=== PATIENT | male | born 1990 | race Caucasian/White ===

== ENCOUNTER 2018-04-28 17:59 | Inpatient (IN) | payer OTHER ==
[2018-04-28 18:24] LABS: Bilirubin Negative (Negative); Blood, Urine Negative (Negative); Clarity Clear (Clear); Glucose, Urine (Dipstick) Negative (Negative); Leukocyte Negative (Negative); Nitrite Negative (Negative); Protein, Urine (Dipstick) 30 mg/dL (Neg-Trace); Specific Gravity, Urine 1.015 (1.005-1.030); pH, Urine 8.5 (5.0-9.0)
[2018-04-28 18:26] LABS: RBC/HPF None Seen HPF (0-3); Squamous Epithelial None Seen HPF (0-3); WBC/HPF None Seen HPF (0-3)
[2018-04-28 18:27] LABS: Bacteria/HPF 1+ HPF (None Seen)
[2018-04-28] MEDS ORDERED: Famotidine/PF 20 mg/2ml Vial ONE (18:30)
[2018-04-28] MEDS ORDERED: Ondansetron HCl/PF 4 MG/2 ML Vial ONE (18:30)
[2018-04-28 18:57] LABS: #Lymphocytes 0.5 thou/uL (1.20-3.40); #Monocytes 0.6 thou/uL (0.11-0.59); #Neutrophils 10.5 thou/uL (1.40-6.50); %Basophils 0.2 % (0.0-1.0); %Eosinophils 0.2 % (0.0-10.0); %Monocytes 5.5 % (0.0-10.0); %Neutrophils 90.1 % (42.0-75.0); Hemoglobin 15.6 g/dL (14.0-18.0); Mean Corpuscular HGB CONC 36.9 g/dL (32.0-36.0); Mean Corpuscular Hemoglobin 31.8 pg (27.0-31.0); Mean Corpuscular Volume 86.3 fL (78.0-98.0); Mean Platelet Volume 11.4 fL (7.4-10.4); Platelet Count 130 thou/uL (130-400); RBC Distribution Width 10.1 % (11.5-14.5); Red Blood Cell (RBC) Count 4.89 mill/uL (4.70-6.10); White Blood Cell (WBC) Count 11.7 thou/uL (4.8-10.8)
[2018-04-28 19:04] LABS: ALT (SGPT) 19 U/L (8-55); AST (SGOT) 27 U/L (5-34); Albumin 4.7 g/dL (3.5-5.0); Alkaline Phosphatase 106 U/L (40-150); Anion Gap 14 mmol/L (10-20); BUN (Urea Nitrogen) 20 mg/dL (8.9-20.6); Bilirubin, Total 1.2 mg/dL (0.2-1.2); Calc. Creatinine Clearance 0 mL/min (70-130); Calcium 9.2 mg/dL (7.8-10.44); Carbon Dioxide 25 mmol/L (22-29); Chloride 106 mmol/L (98-107); Estimated GFR-MDRD Greater than 90; Glucose 104 mg/dL (70-105); Lipase 665 U/L (8-78); Potassium 3.7 mmol/L (3.5-5.1); Protein, Total 6.7 g/dL (6.0-8.3); Sodium 141 mmol/L (136-145)
[2018-04-28 20:34] VITALS: BMI 23.4
[2018-04-28] MEDS ORDERED: Ondansetron HCl/PF 4 MG/2 ML Vial IVP PRN (21:26)
[2018-04-28] MEDS ORDERED: Ondansetron ODT 4 MG TAB PO PRN (21:26)
[2018-04-28] MEDS ORDERED: Acetaminophen 325 MG TAB PO PRN (21:26)
[2018-04-28] MEDS ORDERED: Morphine 4 MG/ML VIAL SLOW IVP PRN (21:31)
[2018-04-28] MEDS: Sodium Chloride 0.45% 1,000 ML IV SCH (22:48)
[2018-04-29 04:53] LABS: #Eosinphils 0.1 thou/uL (0.0-0.7); #Lymphocytes 0.8 thou/uL (1.20-3.40); #Monocytes 0.7 thou/uL (0.11-0.59); #Neutrophils 5.5 thou/uL (1.40-6.50); %Basophils 0.1 % (0.0-1.0); %Eosinophils 0.7 % (0.0-10.0); %Lymphocytes 10.9 % (21.0-51.0); %Monocytes 10.2 % (0.0-10.0); Hemoglobin 14.9 g/dL (14.0-18.0); Mean Corpuscular HGB CONC 35.7 g/dL (32.0-36.0); Mean Corpuscular Hemoglobin 33.3 pg (27.0-31.0); Mean Corpuscular Volume 93.3 fL (78.0-98.0); Mean Platelet Volume 9.1 fL (7.4-10.4); Platelet Count 112 thou/uL (130-400); RBC Distribution Width 11.3 % (11.5-14.5); Red Blood Cell (RBC) Count 4.49 mill/uL (4.70-6.10)
[2018-04-29 04:58] LABS: Anion Gap 10 mmol/L (10-20); BUN (Urea Nitrogen) 16 mg/dL (8.9-20.6); Calc. Creatinine Clearance 151 mL/min (70-130); Calcium 8.8 mg/dL (7.8-10.44); Carbon Dioxide 27 mmol/L (22-29); Chloride 105 mmol/L (98-107); Estimated GFR-MDRD Greater than 90; Glucose 101 mg/dL (70-105); Lipase 34 U/L (8-78); Sodium 138 mmol/L (136-145)
[2018-04-29] MEDS: Sodium Chloride 0.45% 1,000 ML IV SCH (08:30)
--- NOTE | 2018-04-29 08:58 | CT ---
NONCONTRAST ENHANCED CT IMAGES OF ABDOMEN AND PELVIS: 04/28/18 HISTORY: Abdominal pain with multiple episodes of vomiting. Noncontrast enhanced CT images of the abdomen and pelvis obtained. IV and oral contrast was not given . The lung bases are unremarkable. No evidence of free intraperitoneal air seen. The liver, spleen, gallbladder, pancreas, adrenal glands are unremarkable. No definite abnormality se en. There may be a tiny nonobstructing upper pole left renal calculus. No evidence of hydroureteronephros is seen. No evidence of periaortic lymphadenopathy seen. The appendix definitively is not visualized. No evidence of small bowel dilatation is seen. The colon demonstrates no evidence of obstruction or dilatation. No evidence of inguinal or anterior abdominal hernia seen. IMPRESSION: Possible tiny upper pole left renal calculus. No other significant abnormality seen. There may be stone e minimally enlarged mesenteric lymph nodes seen. POS: [facility]
[2018-04-29] MEDS ORDERED: Famotidine 20 MG TAB PO SCH (09:00)
--- NOTE | 2018-04-29 09:48 | HP ---
CHIEF COMPLAINT: Abdominal pain and vomiting. HISTORY OF PRESENT ILLNESS: This patient is a 27-year-old male who presented to the [facility] Emergency Department complaining of some abdominal pain and vomiting. The patient states he had gotten up very early in the morning and had taken a nap starting about 1:00 in the afternoon. At 3:00 p.m. , the patient awakened with some upper abdominal pain generally in the epigastric area. This lasted for about 15 minutes and then he subsequently had some vomiting. With the vomiting, his pain resolved, but recurred within 20-30 minutes and he had to have another episode of vomiting. This happened repeatedly. The patient reports he likely vomited close to 20 times. Initially , his emesis was undigested lunch, but then became just bilious fluid. He described his pain as dull and around 5:30 when it was at its peak, it was 10/ 10 and at that time it was more persistent. At the time of the exam, the patient reports 2/10 and crampy type feeling. He has had no diarrhea. He reports his stools are typically on the softer side, but no keegan diarrhea. He has had fever a couple of times with a temperature up to 101, but resolved very quickly. He has never had symptoms like this before. REVIEW OF SYSTEMS: Thorough 10 point review of systems was only notable for some mild burning sensation with voiding. It was negative other than those things mentioned in history of present illness. PAST MEDICAL HISTORY: Notable for a PCL tear on the right knee which has not had any intervention. PAST SURGICAL HISTORY: None. FAMILY HISTORY: The patient is adopted, so he knows very little about his family biological history, but he was told that his biological mother did have pancreatitis. SOCIAL HISTORY: No tobacco, alcohol, or drugs. The patient is . ALLERGIES: None. MEDICATIONS: None. CARE PLANNING: The patient is FULL CODE and his would be his surrogate decision maker. PHYSICAL EXAMINATION: VITAL SIGNS: Temperature is 98.6, pulse 78, respirations 16, O2 sat 99% on room air, BP was 106/65. GENERAL APPEARANCE: Age appropriate male in no distress. He is awake, alert, oriented, very pleasant, cooperative. HEENT: PERRL. No OP lesions. NECK: Supple, symmetric without lymphadenopathy, JVD, or carotid bruits. HEART: Has regular rate and rhythm. No murmurs, gallops or rubs. LUNGS: Clear to auscultation bilaterally. ABDOMEN: Soft, nondistended with normal bowel sounds. There is some tenderness in the upper abdomen area slightly below the epigastrium. There is no guarding or rebound. EXTREMITIES: Warm and dry with no edema. LABORATORY DATA: White count 11.7, hemoglobin 15.6, platelets 130. Sodium 141 , potassium 3.7, chloride 106, CO2 is 25, BUN 20, creatinine 0.8, glucose 104, AST 27, ALT 19, albumin was 2, lipase 665. Urinalysis showed trace protein and ketones. CT abdomen and pelvis revealed tiny upper pole left renal calculus. No other significant abnormalities with some possible minimally enlarged mesenteric lymph nodes. IMPRESSION AND PLAN: Abdominal pain with nausea and vomiting. Patient's lipase was elevated, although his CT scan showed no evidence of pancreatitis. This patient has no risk factors for pancreatitis. His white count is slightly borderline elevated, but would suspect at this point is more likely as the patient is having some type of viral gastroenteritis. We will keep him n.p.o. except for sips of water, hydrate with IV fluids, give p.r.n. pain meds and antiemetics. We will recheck his labs and exam in the morning. SUHAIL
[2018-04-29 16:28] VITALS: BP 106/66; TEMP 99.3
--- NOTE | 2018-04-29 23:49 | DIS ---
DATE OF ADMISSION: 04/28/2018 DATE OF DISCHARGE: 04/29/2018 DISCHARGE DIAGNOSES: 1. Abdominal pain. 2. Nausea, vomiting. 3. Elevated lipase with the rapid normalization. HOSPITAL COURSE: Patient is a 27-year-old male who was in his state of usual good health when he cornelius kened from a nap on the day of admission with some upper abdominal pain. The patient reports this wa s dull in nature, but peaked at about 10/10 a couple hours into this. He had about 15 minutes of dis comfort followed by vomiting and relief of his symptoms. He had a cycling issue of pain building up, vomiting, relief of pain and then recurring. He reports he likely vomited as many as 20 times. He then presented to the emergency department outside of this facility. There, he had labs with a white count of 11.7, hemoglobin 15.6, platelets 130. Chemistries only notable for an albumin of 2.0, lipa se was 665. Urinalysis showed trace protein. A CT scan of the abdomen was performed. The impressio n of which was possible tiny upper pole left renal calculus with no other significant abnormality see n with some possible minimally enlarged mesenteric lymph nodes seen. The pancreas appeared to be unr emarkable. HOSPITAL COURSE: The patient was admitted with concern for possible pancreatitis with elevated lipas e and his upper abdominal pain. His symptoms had already started to improve at the time of my evalua tion. He was kept overnight on IV fluids and n.p.o. By the morning, his symptoms had come down to j ust a small crampy type sensation. He had no significant tenderness on abdominal exam. HEART: Regular rate and rhythm. LUNGS: Clear bilaterally. EXTREMITIES: Warm and dry. LABORATORY DATA: White count was 7.0, platelet count was 112. Chemistries again were normal, now wi th a lipase of 34. The patient was subsequently allowed to eat a regular diet, which he tolerated we ll. The patient had initially presented with some low grade fever, but had none through the course o f his admission. His vital signs in fact remained completely stable throughout. Given that his pain improved, his lipase had essentially very rapidly remarkably normalized and he was able to tolerate a regular diet. He was felt to be stable for discharge to home with outpatient followup. The patien t does not have a PCP, although he is strongly encouraged to find a PCP with whom he can follow up. He is to have modest activity today and then tomorrow, but he is to continue to have a regular diet a nd push fluids as possible. He should return to the emergency department should he have any signific ant problems prior to the time of his followup with PCP. Actually, there will not discharge medicati ons.
== END 2018-04-29 17:00 | disposition home or self-care (01) | DRG 392 ==
LOC: SCSER 17:59 → T4-A 20:02
PROVIDERS: ADMIT Internal Medicine; ATTEND Internal Medicine
DX: R10.13 Epigastric pain (principal); R11.2 Nausea with vomiting, unspecified
CPT/HCPCS: 36415; 74176; 80048; 80053; 81003; 81015; 83690; 85025; 96361; 96374; 96375; J2405; S0028

== ENCOUNTER 2019-02-21 15:59 | Emergency (ER) | payer BC ==
[2019-02-21 16:27] LABS: #Lymphocytes 0.7 thou/uL (1.20-3.40); #Monocytes 0.5 thou/uL (0.11-0.59); %Basophils 0.3 % (0.0-1.0); %Eosinophils 0.3 % (0.0-10.0); %Lymphocytes 7.9 % (21.0-51.0); %Monocytes 4.9 % (0.0-10.0); %Neutrophils 86.6 % (42.0-75.0); Mean Corpuscular HGB CONC 34.5 g/dL (32.0-36.0); Mean Corpuscular Hemoglobin 32.7 pg (27.0-31.0); Mean Platelet Volume 9.5 fL (7.4-10.4); Platelet Count 150 thou/uL (130-400); RBC Distribution Width 11.2 % (11.5-14.5); Red Blood Cell (RBC) Count 4.58 mill/uL (4.70-6.10); White Blood Cell (WBC) Count 9.2 thou/uL (4.8-10.8)
[2019-02-21 16:48] LABS: ALT (SGPT) 27 U/L (8-55); AST (SGOT) 24 U/L (5-34); Albumin 4.4 g/dL (3.5-5.0); Alkaline Phosphatase 116 U/L (40-150); Anion Gap 11 mmol/L (10-20); BUN (Urea Nitrogen) 18 mg/dL (8.9-20.6); Bilirubin, Total 1.2 mg/dL (0.2-1.2); Calc. Creatinine Clearance 0 mL/min (70-130); Calcium 9.3 mg/dL (7.8-10.44); Carbon Dioxide 31 mmol/L (22-29); Chloride 101 mmol/L (98-107); Estimated GFR-MDRD Greater than 90; Globulin 2.4 g/dL (2.4-3.5); Glucose 102 mg/dL (70-105); Lipase 18 U/L (8-78); Potassium 3.5 mmol/L (3.5-5.1); Protein, Total 6.8 g/dL (6.0-8.3); Sodium 139 mmol/L (136-145)
[2019-02-21 17:13] LABS: Bilirubin Negative (Negative); Blood, Urine Negative (Negative); Clarity CLEAR (Clear); Glucose, Urine (Dipstick) Negative (Negative); Leukocyte Negative (Negative); Nitrite Negative (Negative); Protein, Urine (Dipstick) Negative (Neg-Trace); Specific Gravity, Urine 1.034 (1.002-1.036); pH, Urine 6.5 (5.0-9.0)
[2019-02-21] MEDS ORDERED: Ondansetron ODT 8 MG TAB ONE (18:45)
== END 2019-02-21 19:41 | disposition home or self-care (01) ==
LOC: ERS 15:59
DX: R11.2 Nausea with vomiting, unspecified (principal); R19.7 Diarrhea, unspecified
CPT/HCPCS: 36415; 83690; 99284